=== PATIENT | male | born 1995 | race Two or more races ===

== ENCOUNTER 2020-12-23 16:07 | Emergency (ER) | payer OTHER ==
[~2020-12-23] VITALS: Ht 170.2 cm; Wt 86.2 kg
--- NOTE | 2020-12-23 16:15 | NUR ---
ABRAN FOLEY AT BEDSIDE FOR EVAL.
--- NOTE | 2020-12-23 17:10 | NUR ---
DITCH RIDER AT BEDSIDE FOR BLOOD DRAW.
[2020-12-23 17:15] LABS: BASOPHILS % (AUTO) 0.6 % (0.0-2.0); EOSINOPHILS % (AUTO) 0.1 % (0.0-6.0); HEMATOCRIT 44 % (39-51); HEMOGLOBIN 14.6 g/dL (13.5-17.5); LYMPHOCYTES # (AUTO) 1.3 K/uL (0.8-4.8); LYMPHOCYTES % (AUTO) 24.2 % (20.0-44.0); MEAN CORPUSCULAR HGB CONC 33 g/dl (31.0-36.0); MEAN CORPUSCULAR VOLUME 91 fL (80-96); MONOCYTES # (AUTO) 0.5 K/uL (0.1-1.30); MONOCYTES % (AUTO) 9.4 % (2.0-12.0); NEUTROPHILS # (AUTO) 3.6 K/uL (1.8-8.9); NEUTROPHILS % (AUTO) 65.7 % (43.0-81.0); PLATELET COUNT (AUTO) 246 K/uL (150-450); RED BLOOD CELL COUNT(AUTO) 4.84 MIL/uL (4.5-6.0); WHITE BLOOD COUNT (AUTO) 5.4 K/uL (4.3-11.0)
[2020-12-23 17:25] LABS: CARBON DIOXIDE 26 mmol/L (21-32); CHLORIDE 107 mmol/L (98-107); CREATININE 1.1 mg/dL (0.6-1.3); GLUCOSE 116 mg/dL (74-106); POTASSIUM 4.5 mmol/L (3.5-5.1); SODIUM SERUM 145 mmol/L (136-145); UREA NITROGEN, BLOOD 9 mg/dL (7-18)
[2020-12-23] MEDS ORDERED: OLANZAPINE 10 MG VIAL IM ONE ×2 (17:30→17:45)
[2020-12-23 17:41] LABS: ALANINE AMINOTRANSFERASE 24 U/L (12-78); ALBUMIN 3.9 g/dL (3.4-5.0); ALCOHOL, BLOOD < 3 mg/dL (0-0); ALKALINE PHOSPHATASE 69 U/L (46-116); ASPARTATE AMINOTRANSFERASE 15 U/L (15-37); BILIRUBIN,DIRECT 0.1 mg/dL (0.0-0.2); BILIRUBIN,TOTAL 0.3 mg/dL (0.2-1.0); TOTAL PROTEIN, SERUM 7.6 g/dL (6.4-8.2)
[2020-12-23 17:47] LABS: ACETAMINOPHEN < 2 ug/ml (10-30)
[2020-12-23 18:26] LABS: BILIRUBIN,URINE Negative (NEGATIVE); COLOR,URINE YELLOW (YELLOW); LEUKOCYTE ESTERASE ,URINE Negative (NEGATIVE); NITRITE, URINE Negative (NEGATIVE); PROTEIN,URINE Negative (NEGATIVE); UGLUCOSE Negative (NEGATIVE); UROBILINOGEN,URINE 0.2 EU/dL (0.2)
--- NOTE | 2020-12-23 19:05 | NUR ---
PT NOTED SLEEPING WITH EVEN RESPIRATIONS. ATTACHED TO MONITOR, VSS
--- NOTE | 2020-12-23 21:30 | NUR ---
pt is awake, alert and oriented x 4. not in resp distress. tested ambulatory and on steady gait. pt was also provided with food. pt provided with tap card as per request so he can go back to [facility].
--- NOTE | 2020-12-23 21:39 | NUR ---
Patient discharged to home in stable condition. Written and verbal after care instructions given. Patient verbalizes understanding of instruction.
[2020-12-23 21:40] VITALS: BP 119/58
== END 2020-12-23 21:40 | disposition home or self-care (01) ==
LOC: ER 16:14
DX: R41.82 Altered mental status, unspecified (principal); F12.929 Cannabis use, unspecified with intoxication, unspecified; Z60.2 Problems related to living alone
CPT/HCPCS: 36415; 70450; 72125; 80048; 80076; 80143; 80307; 80320; 81003; 85025; 96372; 99285; J3490; G0480